=== PATIENT | male | born 1990 | race Hispanic/Latino ===

== ENCOUNTER 2020-07-03 01:16 | Inpatient (IN) | payer OTHER ==
[~2020-07-03] VITALS: Ht 180.3 cm; Wt 88.9 kg
[2020-07-03] MEDS ORDERED: AZITHROMYCIN 500MG+NS 250ML 250 ML IV ONE (01:49)
[2020-07-03] MEDS ORDERED: CEFTRIAXONE SODIUM 2 GM VIAL ONE (01:49)
[2020-07-03] MEDS ORDERED: SODIUM CHLORIDE 0.9% 50 ML IV ONE (01:51)
[2020-07-03 02:09] LABS: ABG BASE EXCESS -1.8 mmol/L (-2.0-3.0); ABG HCO3 21.7 mmol/L (21.0-28.0); ABG OXYGEN SATURATION 77.6 % (95.0-99.0); ABG PCO2 34 mmHg (35-48)
[2020-07-03 03:08] LABS: BASOPHILS % (AUTO) 0.6 % (0.0-5.0); HEMATOCRIT 43.8 % (42-54); LYMPHOCYTES % (AUTO) 14.6 % (21.0-51.0); MEAN CORPUSCULAR HEMOGLOBIN 28.2 pg (27.0-33.0); MONOCYTES % (AUTO) 4.7 % (3.0-13.0); NEUTROPHILS % (AUTO) 77.8 % (40.0-77.0); NUCLEATED RED BLOOD CELLS 0.2 % (0.0-0.19); PLATELET COUNT (AUTO) 343 K/uL (130-400); RED BLOOD CELL COUNT(AUTO) 5.28 MIL/uL (4.50-6.20); RED CELL DISTRIBUTION WIDTH 13.7 % (11.0-15.5); WHITE BLOOD COUNT (AUTO) 9.6 K/uL (4.8-10.8)
[2020-07-03 03:49] LABS: CARBON DIOXIDE 23 mmol/L (21-32); CHLORIDE 95 mmol/L (101-111); CREATININE 0.9 mg/dL (0.5-1.5); GLOMERULAR FILTR. RATE CALC 106 mL/min (>60); GLUCOSE,RANDOM 353 mg/dL (70-105); POTASSIUM 3.9 mmol/L (3.5-5.1); SODIUM SERUM 136 mmol/L (136-145); UREA NITROGEN, BLOOD 13 mg/dL (7-18)
[2020-07-03 04:05] LABS: ALANINE AMINOTRANSFERASE 132 U/L (12-78); ALBUMIN 2.9 g/dL (3.5-5.0); ASPARTATE AMINOTRANSFERASE 89 U/L (10-37); BILIRUBIN,TOTAL 0.8 mg/dL (0.2-1.0); MYOGLOBIN 205 ng/mL (10-92); TOTAL PROTEIN, SERUM 7.2 g/dL (6.0-8.3); TROPONIN I < 0.04 ng/mL (0.00-0.06)
[2020-07-03 04:10] LABS: CREATINE KINASE, TOTAL 605 U/L (21-232)
[2020-07-03 05:06] LABS: INR 1.12 (0.85-1.15); PROTHROMBIN TIME 11.9 SEC (9.6-11.6)
[2020-07-03 05:08] LABS: PARTIAL THROMBOPLASTIN TIME 23.4 SEC (26.3-35.5)
[2020-07-03 05:19] LABS: APPEARANCE,URINE Clear (CLEAR); BILIRUBIN,URINE Negative (NEGATIVE); COLOR,URINE Yellow (YELLOW); GLUCOSE, URINE (UA) >=1000 mg/dL (NEGATIVE); KETONES,URINE >=160 mg/dL (NEGATIVE); LEUKOCYTE ESTERASE ,URINE Negative (NEGATIVE); NITRATE,URINE Negative (NEGATIVE); OCCULT BLOOD,URINE Trace (NEGATIVE); PH,URINE 6.5 (5.0-8.0); PROTEIN,URINE POS 2+ mg/dL (NEGATIVE); UROBILINOGEN,URINE 0.2 mg/dL (0.2-1.0)
[2020-07-03 05:32] LABS: RBC,URINE 0-1 /HPF (0-1); WBC,URINE 0-1 /HPF (0-1)
[2020-07-03 05:33] LABS: BACTERIA,URINE Few /HPF (None Seen); SQUAMOUS EPITHELIAL CELL,UR 0-2 /HPF (0-2)
[2020-07-03] MEDS ORDERED: PHARMACY COMMUNICATION MISC SCH (06:30)
[2020-07-03] MEDS ORDERED: ACETAMINOPHEN 325 MG TAB PO PRN (06:30)
[2020-07-03] MEDS ORDERED: ONDANSETRON HCL 4 MG/2 ML VIAL IV PRN (06:30)
[2020-07-03] MEDS ORDERED: DEXAMETHASONE SOD PHOSPHATE 4 MG/ML 1ML VIAL IVP SCH (06:30)
[2020-07-03 07:15] LABS: CHOLESTEROL 167 mg/dL (<200); HDL CHOLESTEROL 29 mg/dL (29-71); LDL DIRECT 103 mg/dL (0-99); TRIGLYCERIDES 220 mg/dL (30-200)
[2020-07-03 07:21] LABS: HEMOGLOBIN A1C 9.9 % (4.0-6.0)
[2020-07-03] MEDS ORDERED: INSULIN HUMULIN R 100 UNIT/ML 3ML SQ SCH (07:30)
[2020-07-03] MEDS ORDERED: IOHEXOL-350 75 ML VIAL IV ONE (07:31)
[2020-07-03] MEDS ORDERED: ENOXAPARIN SODIUM 60 MG/0.6 ML SQ ONE (08:46)
[2020-07-03] MEDS ORDERED: DEXAMETHASONE SOD PHOSPHATE 10MG/ML 1ML VIAL ONE (08:46)
[2020-07-03] MEDS ORDERED: ASCORBIC ACID 500 MG TAB ONE (08:46)
[2020-07-03] MEDS ORDERED: DOXYCYCLINE 100MG+NS 250ML 250 ML IV ONE (08:47)
[2020-07-03] MEDS ORDERED: ZINC SULFATE 220 CAPSULE ONE (08:47)
[2020-07-03] MEDS ORDERED: FAMOTIDINE/PF 20 MG/2 ML VIAL IV ONE (08:47)
[2020-07-03] MEDS ORDERED: ERGOCALCIFEROL (VITAMIN D2) 50,000 UNIT CAPSULE ONE (08:47)
[2020-07-03] MEDS ORDERED: FUROSEMIDE 10 MG/ML 2ML VIAL ONE (08:47)
[2020-07-03] MEDS ORDERED: INSULIN HUMULIN R 100 UNIT/ML 3ML ONE (12:08)
[2020-07-03] MEDS ORDERED: ERGOCALCIFEROL (VITAMIN D2) 50,000 UNIT CAPSULE PO ONE (14:00)
[2020-07-03] MEDS ORDERED: COMPOUND IV REFRIGERATED 1 EACH IVSOLN MISC PRN (15:00)
[2020-07-03] MEDS ORDERED: REMDESIVIR (EUA) 520 200 MG in SODIUM CHLORIDE 0.9% 250 ML IV ONE (15:00)
[2020-07-03] MEDS ORDERED: INSULIN GLARGINE 100 UNITS/ML 10 ML VIAL SQ SCH (21:00)
[2020-07-04] MEDS ORDERED: PROPOFOL 1000 MG/100 ML 100 ML IV ONE ×9 (01:21→22:40)
[2020-07-04 02:20] LABS: ABG BASE EXCESS -7.2 mmol/L (-2.0-3.0); ABG HCO3 22.5 mmol/L (21.0-28.0); ABG OXYGEN SATURATION 60.2 % (95.0-99.0); ABG PCO2 64 mmHg (35-48)
[2020-07-04] MEDS ORDERED: ROCURONIUM BROMIDE 10MG/1ML 5ML VL ONE ×3 (02:23→04:06)
[2020-07-04] MEDS ORDERED: SODIUM CHLORIDE 0.9% 50 ML IV ONE ×2 (02:24→03:38)
[2020-07-04] MEDS ORDERED: FENTANYL 2500MCG+NS 250ML 250 ML IV ONE (02:35)
[2020-07-04] MEDS ORDERED: METOPROLOL TARTRATE 1 MG/ML 5ML VIAL IV ONE ×3 (03:22→13:33)
[2020-07-04] MEDS ORDERED: PROPOFOL 1000 MG/100 ML 200 ML IV ONE (03:32)
[2020-07-04 03:55] LABS: ABG BASE EXCESS -7.3 mmol/L (-2.0-3.0); ABG HCO3 22.8 mmol/L (21.0-28.0); ABG OXYGEN SATURATION 94.4 % (95.0-99.0); ABG PCO2 67 mmHg (35-48)
[2020-07-04] MEDS ORDERED: SODIUM CHLORIDE 0.9% 100 ML IV ONE ×3 (04:16→07:26)
[2020-07-04] MEDS ORDERED: ROCURONIUM 100 MG/NS 100ML (DRIP) IV SCH ×2 (05:30)
[2020-07-04] MEDS ORDERED: FENTANYL CITRATE PF 0.05 MG/ML 1,000 MCG in SODIUM CHLORIDE 0.9% 100 ML IVPB SCH (05:30)
[2020-07-04] MEDS ORDERED: PHARMACY COMMUNICATION MISC SCH (06:00)
[2020-07-04] MEDS ORDERED: PROPOFOL 10 MG/ML 20ML VIAL IV ONE ×3 (07:06→17:30)
[2020-07-04 08:00] LABS: BASOPHILS % (AUTO) 0.4 % (0.0-5.0); EOSINOPHILS % (AUTO) 0.7 % (0.0-8.0); HEMATOCRIT 44.2 % (42-54); LYMPHOCYTES % (AUTO) 7.7 % (21.0-51.0); MEAN CORPUSCULAR HEMOGLOBIN 27.9 pg (27.0-33.0); MEAN CORPUSCULAR HGB CONC 32.1 g/dL (32.0-36.0); MEAN CORPUSCULAR VOLUME 86.8 fL (79-99); MONOCYTES % (AUTO) 4.8 % (3.0-13.0); NEUTROPHILS % (AUTO) 84.3 % (40.0-77.0); NUCLEATED RED BLOOD CELLS 0.3 % (0.0-0.19); PLATELET COUNT (AUTO) 281 K/uL (130-400); RED BLOOD CELL COUNT(AUTO) 5.09 MIL/uL (4.50-6.20); RED CELL DISTRIBUTION WIDTH 14.2 % (11.0-15.5); WHITE BLOOD COUNT (AUTO) 17.7 K/uL (4.8-10.8)
[2020-07-04] MEDS ORDERED: ENOXAPARIN SODIUM 60 MG/0.6 ML SQ ONE ×2 (08:05→20:52)
[2020-07-04] MEDS ORDERED: FAMOTIDINE/PF 20 MG/2 ML VIAL IV ONE ×2 (08:06→20:52)
[2020-07-04] MEDS ORDERED: ZINC SULFATE 220 CAPSULE ONE (08:06)
[2020-07-04] MEDS ORDERED: ASCORBIC ACID 500 MG TAB ONE (08:06)
[2020-07-04] MEDS ORDERED: INSULIN HUMULIN R 100 UNIT/ML 3ML ONE ×3 (08:07→17:05)
[2020-07-04] MEDS ORDERED: DEXAMETHASONE SOD PHOSPHATE 10MG/ML 1ML VIAL ONE (08:08)
[2020-07-04 08:20] LABS: ALBUMIN 2.9 g/dL (3.5-5.0); CREATININE 1.1 mg/dL (0.5-1.5); POTASSIUM 4.8 mmol/L (3.5-5.1)
[2020-07-04 08:46] LABS: CRP QUANTITATIVE 197.8 mg/L (0.00-9.0)
[2020-07-04] MEDS ORDERED: ROCURONIUM 10MG/1ML SYR 10 MG/ML ML ONE (09:08)
[2020-07-04] MEDS ORDERED: SODIUM CHLORIDE 0.9% IV SCH ×2 (09:30→17:45)
[2020-07-04] MEDS ORDERED: ROCURONIUM BROMIDE IV SCH ×2 (09:30→17:45)
[2020-07-04 14:27] LABS: ABG BASE EXCESS -4.8 mmol/L (-2.0-3.0); ABG HCO3 24.5 mmol/L (21.0-28.0); ABG OXYGEN SATURATION 99.4 % (95.0-99.0); ABG PCO2 64 mmHg (35-48)
[2020-07-04] MEDS ORDERED: REMDESIVIR (EUA) 520 100 MG in SODIUM CHLORIDE 0.9% 250 ML IV SCH (15:00)
[2020-07-04] MEDS ORDERED: DOXYCYCLINE 100MG+NS 250ML 250 ML IV ONE (17:05)
[2020-07-04] MEDS ORDERED: FUROSEMIDE 10 MG/ML 2ML VIAL ONE (20:52)
[2020-07-04] MEDS ORDERED: METOCLOPRAMIDE 10 MG/2 ML VIAL ONE (20:53)
[2020-07-05] VITALS (29 sets, daily range): BP systolic 100–135; BP diastolic 44–76
[2020-07-05] MEDS: PROPOFOL 1000 MG/100 ML 100 ML IV SCH ×8 (01:09→23:46)
[2020-07-05] MEDS: ROCURONIUM BROMIDE IV SCH ×12 (01:11→09:48)
[2020-07-05] MEDS: METOPROLOL TARTRATE 1 MG/ML 5ML VIAL IV SCH ×2 (01:28→08:40)
[2020-07-05] MEDS: INSULIN NPH 100 UNIT/ML 3ML SQ SCH ×2 (02:10→08:41)
[2020-07-05] MEDS: INSULIN HUMULIN R 100 UNIT/ML 3ML SQ SCH ×5 (02:11→23:40)
[2020-07-05] MEDS ORDERED: FENTANYL 2500MCG+NS 250ML 250 ML IV ONE (02:46)
[2020-07-05 03:26] LABS: ABG HCO3 20.5 mmol/L (21.0-28.0); ABG PCO2 49 mmHg (35-48)
[2020-07-05 06:10] LABS: BASOPHILS % (AUTO) 0.8 % (0.0-5.0); HEMATOCRIT 41.5 % (42-54); MEAN CORPUSCULAR VOLUME 87.4 fL (79-99); MONOCYTES % (AUTO) 7.4 % (3.0-13.0); NEUTROPHILS % (AUTO) 79.7 % (40.0-77.0); NUCLEATED RED BLOOD CELLS 0.4 % (0.0-0.19); PLATELET COUNT (AUTO) 203 K/uL (130-400); RED BLOOD CELL COUNT(AUTO) 4.75 MIL/uL (4.50-6.20); RED CELL DISTRIBUTION WIDTH 13.9 % (11.0-15.5); WHITE BLOOD COUNT (AUTO) 10.3 K/uL (4.8-10.8)
[2020-07-05] MEDS: MIDAZOLAM 100MG-0.9% NS 100ML 100 ML IV SCH ×2 (06:11→17:57)
[2020-07-05 06:46] LABS: ALBUMIN 2.6 g/dL (3.5-5.0); CREATININE 1.3 mg/dL (0.5-1.5); TOTAL PROTEIN, SERUM 7.5 g/dL (6.0-8.3)
[2020-07-05 07:35] LABS: CRP QUANTITATIVE 241.4 mg/L (0.00-9.0)
[2020-07-05] MEDS ORDERED: SODIUM BICARB 50MEQ 50ML VIAL IV SCH (08:00)
[2020-07-05] MEDS: FUROSEMIDE 10 MG/ML 2ML VIAL IV SCH ×2 (08:45→23:35)
[2020-07-05] MEDS: FAMOTIDINE/PF 20 MG/2 ML VIAL IV SCH ×2 (08:46→23:34)
[2020-07-05] MEDS: ZINC SULFATE 220 CAPSULE PO SCH ×2 (08:46→09:00)
[2020-07-05] MEDS: ASCORBIC ACID 500 MG TAB PO SCH ×2 (08:46→09:00)
[2020-07-05] MEDS: ENOXAPARIN SODIUM 60 MG/0.6 ML SQ SCH ×2 (08:47→23:37)
[2020-07-05 10:20] LABS: ABG BASE EXCESS 3.1 mmol/L (-2.0-3.0); ABG HCO3 29.1 mmol/L (21.0-28.0); ABG PCO2 49 mmHg (35-48)
[2020-07-05 10:23] LABS: ALBUMIN 2.6 g/dL (3.5-5.0); BILIRUBIN,TOTAL 3.5 mg/dL (0.2-1.0); TOTAL PROTEIN, SERUM 7.2 g/dL (6.0-8.3)
[2020-07-05] MEDS: ARTIFICAL TEARS SOL 15 ML OD SCH ×2 (11:11→23:36)
[2020-07-05] MEDS: DOXYCYCLINE 100MG+NS 250ML 250 ML IV SCH (17:58)
[2020-07-05] MEDS: DEXAMETHASONE SOD PHOSPHATE 4 MG/ML 1ML VIAL IVP SCH (17:59)
[2020-07-05] MEDS: ACETAMINOPHEN 325 MG TAB PO PRN (23:35)
[2020-07-05] MEDS: FENTANYL 2500MCG+NS 250ML 250 ML IV SCH (23:52)
[2020-07-05] MEDS: INSULIN REGULAR, HUMAN 3ML 100 UNIT in SODIUM CHLORIDE 0.9% 99 ML IV PRN ×2 (23:53)
[2020-07-06] VITALS (44 sets, daily range): BP systolic 101–128; BP diastolic 51–74
[2020-07-06] MEDS: PROPOFOL 1000 MG/100 ML 100 ML IV SCH ×10 (01:17→22:47)
[2020-07-06] MEDS: ROCURONIUM BROMIDE IV SCH ×8 (01:20→23:38)
[2020-07-06] MEDS: MIDAZOLAM 100MG-0.9% NS 100ML 100 ML IV SCH ×3 (03:14→22:48)
[2020-07-06 04:14] LABS: BASOPHILS % (AUTO) 0.5 % (0.0-5.0); HEMATOCRIT 38.7 % (42-54); LYMPHOCYTES % (AUTO) 4.8 % (21.0-51.0); MEAN CORPUSCULAR HEMOGLOBIN 28.5 pg (27.0-33.0); MONOCYTES % (AUTO) 7.5 % (3.0-13.0); NEUTROPHILS % (AUTO) 81.4 % (40.0-77.0); NUCLEATED RED BLOOD CELLS 0.5 % (0.0-0.19); PLATELET COUNT (AUTO) 224 K/uL (130-400); RED BLOOD CELL COUNT(AUTO) 4.35 MIL/uL (4.50-6.20); RED CELL DISTRIBUTION WIDTH 14.4 % (11.0-15.5); WHITE BLOOD COUNT (AUTO) 12.4 K/uL (4.8-10.8)
[2020-07-06 04:30] LABS: ALBUMIN 2.4 g/dL (3.5-5.0); BILIRUBIN,TOTAL 3.3 mg/dL (0.2-1.0); CREATININE 1.5 mg/dL (0.5-1.5); POTASSIUM 4.1 mmol/L (3.5-5.1)
[2020-07-06 05:24] LABS: CRP QUANTITATIVE 193.3 mg/L (0.00-9.0)
[2020-07-06] MEDS: INSULIN REGULAR, HUMAN 3ML 100 UNIT in SODIUM CHLORIDE 0.9% 99 ML IV PRN ×4 (05:35→21:42)
[2020-07-06] MEDS: CEFTRIAXONE SODIUM 1 GM IV SCH (05:43)
[2020-07-06] MEDS: DOXYCYCLINE 100MG+NS 250ML 250 ML IV SCH ×2 (05:43→17:34)
[2020-07-06] MEDS: INSULIN HUMULIN R 100 UNIT/ML 3ML SQ SCH ×3 (05:43→17:33)
[2020-07-06] MEDS: DEXAMETHASONE SOD PHOSPHATE 4 MG/ML 1ML VIAL IVP SCH ×2 (05:43→17:34)
[2020-07-06] MEDS: ENOXAPARIN SODIUM 60 MG/0.6 ML SQ SCH ×2 (08:51→21:39)
[2020-07-06] MEDS: ASCORBIC ACID 500 MG TAB PO SCH ×2 (08:51→09:00)
[2020-07-06] MEDS: FUROSEMIDE 10 MG/ML 2ML VIAL IV SCH (08:52)
[2020-07-06] MEDS: ZINC SULFATE 220 CAPSULE PO SCH ×2 (08:52→09:00)
[2020-07-06] MEDS: FAMOTIDINE/PF 20 MG/2 ML VIAL IV SCH ×2 (08:52→21:39)
[2020-07-06] MEDS: ARTIFICAL TEARS SOL 15 ML OD SCH ×2 (08:53→21:44)
[2020-07-06] MEDS ORDERED: INSULIN GLARGINE 100 UNITS/ML 10 ML VIAL SQ ONE (11:00)
[2020-07-06] MEDS ORDERED: INSULIN GLARGINE 100 UNITS/ML 10 ML VIAL SQ SCH ×3 (12:30→21:00)
[2020-07-06] MEDS: METOPROLOL TARTRATE 25 MG TAB PO SCH ×2 (13:05→21:41)
[2020-07-06] MEDS: ACETAMINOPHEN 325 MG TAB PO PRN (13:11)
[2020-07-06] MEDS: INSULIN GLARGINE 100 UNITS/ML 10 ML VIAL SQ SCH (13:37)
[2020-07-06 13:52] LABS: ABG BASE EXCESS 3.6 mmol/L (-2.0-3.0); ABG HCO3 30.1 mmol/L (21.0-28.0); ABG OXYGEN SATURATION 97.6 % (95.0-99.0); ABG PCO2 53 mmHg (35-48)
[2020-07-06] MEDS: FENTANYL 2500MCG+NS 250ML 250 ML IV SCH (23:38)
[2020-07-07] VITALS (47 sets, daily range): BP systolic 89–124; BP diastolic 36–69
[2020-07-07] MEDS: PROPOFOL 1000 MG/100 ML 100 ML IV SCH ×11 (00:42→23:12)
[2020-07-07] MEDS: INSULIN REGULAR, HUMAN 3ML 100 UNIT in SODIUM CHLORIDE 0.9% 99 ML IV PRN ×4 (00:42→15:28)
[2020-07-07] MEDS ORDERED: NOREPINEPHRINE 4MG/NS 250ML 250 ML IV ONE (02:14)
[2020-07-07 03:39] LABS: ABG BASE EXCESS -1.3 mmol/L (-2.0-3.0); ABG HCO3 24.4 mmol/L (21.0-28.0); ABG OXYGEN SATURATION 97.6 % (95.0-99.0); ABG PCO2 44 mmHg (35-48)
[2020-07-07] MEDS: ROCURONIUM BROMIDE IV SCH ×8 (05:02→20:38)
[2020-07-07 05:24] LABS: BASOPHILS % (AUTO) 0.4 % (0.0-5.0); MEAN CORPUSCULAR HEMOGLOBIN 29.2 pg (27.0-33.0); MEAN CORPUSCULAR HGB CONC 32.1 g/dL (32.0-36.0); MEAN CORPUSCULAR VOLUME 90.9 fL (79-99); MONOCYTES % (AUTO) 9.9 % (3.0-13.0); NEUTROPHILS % (AUTO) 74.8 % (40.0-77.0); PLATELET COUNT (AUTO) 284 K/uL (130-400); RED BLOOD CELL COUNT(AUTO) 4.62 MIL/uL (4.50-6.20); RED CELL DISTRIBUTION WIDTH 14.5 % (11.0-15.5); WHITE BLOOD COUNT (AUTO) 16.3 K/uL (4.8-10.8)
[2020-07-07] MEDS: DEXAMETHASONE SOD PHOSPHATE 4 MG/ML 1ML VIAL IVP SCH ×2 (06:19→17:50)
[2020-07-07] MEDS: CEFTRIAXONE SODIUM 1 GM IV SCH (06:20)
[2020-07-07] MEDS: DOXYCYCLINE 100MG+NS 250ML 250 ML IV SCH ×2 (06:20→17:50)
[2020-07-07 07:51] LABS: POTASSIUM 3.9 mmol/L (3.5-5.1)
[2020-07-07 07:52] LABS: BILIRUBIN,TOTAL 4.6 mg/dL (0.2-1.0); CREATININE 2.4 mg/dL (0.5-1.5); TOTAL PROTEIN, SERUM 6.7 g/dL (6.0-8.3)
[2020-07-07] MEDS: METOPROLOL TARTRATE 25 MG TAB PO SCH ×2 (08:45→21:00)
[2020-07-07] MEDS: ZINC SULFATE 220 CAPSULE PO SCH (08:45)
[2020-07-07] MEDS: ASCORBIC ACID 500 MG TAB PO SCH (08:45)
[2020-07-07] MEDS: ENOXAPARIN SODIUM 60 MG/0.6 ML SQ SCH ×2 (08:45→22:06)
[2020-07-07] MEDS: FAMOTIDINE/PF 20 MG/2 ML VIAL IV SCH ×2 (08:45→22:07)
[2020-07-07] MEDS: INSULIN GLARGINE 100 UNITS/ML 10 ML VIAL SQ SCH (08:47)
[2020-07-07] MEDS: ARTIFICAL TEARS SOL 15 ML OD SCH ×2 (08:47→22:06)
[2020-07-07] MEDS: MIDAZOLAM 100MG-0.9% NS 100ML 100 ML IV SCH ×2 (09:36→20:25)
[2020-07-07] MEDS ORDERED: SODIUM CHLORIDE 0.9% 500ML 500 ML IV ONE ×2 (13:15→13:29)
[2020-07-07] MEDS: FUROSEMIDE 10 MG/ML 4ML VIAL IV SCH ×2 (15:00→22:06)
[2020-07-08] VITALS (46 sets, daily range): BP systolic 89–114; BP diastolic 42–65
[2020-07-08] MEDS: FENTANYL 2500MCG+NS 250ML 250 ML IV SCH (00:26)
[2020-07-08] MEDS: PROPOFOL 1000 MG/100 ML 100 ML IV SCH ×10 (01:42→23:59)
[2020-07-08] MEDS: INSULIN REGULAR, HUMAN 3ML 100 UNIT in SODIUM CHLORIDE 0.9% 99 ML IV PRN ×4 (01:43→09:41)
[2020-07-08] MEDS: ROCURONIUM BROMIDE IV SCH ×6 (02:31→14:08)
[2020-07-08 04:09] LABS: HEPATITIS A ANTIBODY IGM Negative (Negative); HEPATITIS B CORE IGM Negative (Negative); HEPATITIS Bs ANTIGEN SCREEN P Negative (Negative)
[2020-07-08 04:41] LABS: ABG BASE EXCESS -1.7 mmol/L (-2.0-3.0); ABG HCO3 24.8 mmol/L (21.0-28.0); ABG OXYGEN SATURATION 98.3 % (95.0-99.0); ABG PCO2 48 mmHg (35-48)
[2020-07-08 04:58] LABS: BASOPHILS % (AUTO) 0.2 % (0.0-5.0); HEMATOCRIT 32.9 % (42-54); LYMPHOCYTES % (AUTO) 5.9 % (21.0-51.0); MEAN CORPUSCULAR HEMOGLOBIN 29.3 pg (27.0-33.0); MEAN CORPUSCULAR HGB CONC 32.2 g/dL (32.0-36.0); MEAN CORPUSCULAR VOLUME 90.9 fL (79-99); MONOCYTES % (AUTO) 10.9 % (3.0-13.0); NEUTROPHILS % (AUTO) 75.6 % (40.0-77.0); NUCLEATED RED BLOOD CELLS 0.6 % (0.0-0.19); PLATELET COUNT (AUTO) 203 K/uL (130-400); RED BLOOD CELL COUNT(AUTO) 3.62 MIL/uL (4.50-6.20); RED CELL DISTRIBUTION WIDTH 14.9 % (11.0-15.5); WHITE BLOOD COUNT (AUTO) 17.1 K/uL (4.8-10.8)
[2020-07-08] MEDS: MIDAZOLAM 100MG-0.9% NS 100ML 100 ML IV SCH ×2 (04:58→13:21)
[2020-07-08] MEDS: DEXAMETHASONE SOD PHOSPHATE 4 MG/ML 1ML VIAL IVP SCH (05:15)
[2020-07-08] MEDS: CEFTRIAXONE SODIUM 1 GM IV SCH (05:15)
[2020-07-08] MEDS: DOXYCYCLINE 100MG+NS 250ML 250 ML IV SCH (05:16)
[2020-07-08 05:36] LABS: ALBUMIN 1.8 g/dL (3.5-5.0); BILIRUBIN,TOTAL 3.7 mg/dL (0.2-1.0); CREATININE 5.1 mg/dL (0.5-1.5); CRP QUANTITATIVE 149.9 mg/L (0.00-9.0); POTASSIUM 4.1 mmol/L (3.5-5.1); TOTAL PROTEIN, SERUM 6.7 g/dL (6.0-8.3)
[2020-07-08] MEDS ORDERED: POLYETHYLENE GLYCOL 3350 17 GM POWD.PACK NG SCH (08:45)
[2020-07-08] MEDS: FAMOTIDINE/PF 20 MG/2 ML VIAL IV SCH ×2 (08:59→21:04)
[2020-07-08] MEDS: ENOXAPARIN SODIUM 60 MG/0.6 ML SQ SCH ×2 (08:59→21:00)
[2020-07-08] MEDS: ASCORBIC ACID 500 MG TAB PO SCH (08:59)
[2020-07-08] MEDS: ZINC SULFATE 220 CAPSULE PO SCH (08:59)
[2020-07-08] MEDS: METOPROLOL TARTRATE 25 MG TAB PO SCH ×2 (08:59→21:00)
[2020-07-08] MEDS: ARTIFICAL TEARS SOL 15 ML OD SCH ×2 (08:59→21:05)
[2020-07-08] MEDS: DOCUSATE NA 100MG/10ML UDCUP NG SCH ×2 (09:06→16:45)
[2020-07-08] MEDS ORDERED: MIDODRINE HCL 5 MG TABLET PO SCH (09:30)
[2020-07-08] MEDS: MIDODRINE HCL 5 MG TABLET PO SCH ×2 (13:20→21:03)
[2020-07-08] MEDS ORDERED: DEXTROSE 50%-WATER 50 ML DISP.SYRIN IV ONE (14:56)
[2020-07-08] MEDS: LINEZOLID 600 MG/ISO-OSM 300 ML IV SCH ×2 (15:56→21:03)
[2020-07-08] MEDS: FLUCONAZOLE 200 MG/NS 100 ML 100 ML IV SCH (15:56)
[2020-07-08] MEDS: MEROPENEM 1 GM VIAL IVP SCH ×2 (15:57→21:04)
[2020-07-08] MEDS ORDERED: NOREPINEPHRINE 4MG/NS 250ML 250 ML IV SCH (17:15)
[2020-07-08] MEDS: HYDROCORTISONE SOD SUCCINATE 100 MG/2 ML VIAL IV SCH (21:04)
[2020-07-09] VITALS (40 sets, daily range): BP systolic 104–126; BP diastolic 54–76
[2020-07-09] MEDS: ROCURONIUM BROMIDE IV SCH ×14 (00:05→23:31)
[2020-07-09] MEDS: INSULIN REGULAR, HUMAN 3ML 100 UNIT in SODIUM CHLORIDE 0.9% 99 ML IV PRN ×10 (00:09→23:30)
[2020-07-09] MEDS: PROPOFOL 1000 MG/100 ML 100 ML IV SCH ×6 (00:12→23:11)
[2020-07-09] MEDS: DOCUSATE NA 100MG/10ML UDCUP NG SCH ×3 (00:45→16:45)
[2020-07-09] MEDS ORDERED: SODIUM CHLORIDE 0.9% 100 ML IV ONE ×2 (01:53→19:11)
[2020-07-09] MEDS: MIDAZOLAM 100MG-0.9% NS 100ML 100 ML IV SCH ×3 (03:22→23:11)
[2020-07-09 04:15] LABS: ABG HCO3 21.6 mmol/L (21.0-28.0); ABG OXYGEN SATURATION 97.6 % (95.0-99.0); ABG PCO2 62 mmHg (35-48)
[2020-07-09 06:12] LABS: BASOPHILS % (AUTO) 0.2 % (0.0-5.0); HEMATOCRIT 39.7 % (42-54); MEAN CORPUSCULAR HEMOGLOBIN 28.4 pg (27.0-33.0); MEAN CORPUSCULAR HGB CONC 31.2 g/dL (32.0-36.0); MEAN CORPUSCULAR VOLUME 91.1 fL (79-99); MONOCYTES % (AUTO) 11.8 % (3.0-13.0); NEUTROPHILS % (AUTO) 75.8 % (40.0-77.0); NUCLEATED RED BLOOD CELLS 0.4 % (0.0-0.19); PLATELET COUNT (AUTO) 268 K/uL (130-400); RED BLOOD CELL COUNT(AUTO) 4.36 MIL/uL (4.50-6.20); RED CELL DISTRIBUTION WIDTH 15.1 % (11.0-15.5); WHITE BLOOD COUNT (AUTO) 24.5 K/uL (4.8-10.8)
[2020-07-09 06:15] LABS: INR 1.07 (0.85-1.15); PROTHROMBIN TIME 11.4 SEC (9.6-11.6)
[2020-07-09 06:17] LABS: PARTIAL THROMBOPLASTIN TIME 24.8 SEC (26.3-35.5)
[2020-07-09 06:38] LABS: ALBUMIN 1.9 g/dL (3.5-5.0); BILIRUBIN,TOTAL 2.8 mg/dL (0.2-1.0); CREATININE 7.2 mg/dL (0.5-1.5); CRP QUANTITATIVE 77.8 mg/L (0.00-9.0); POTASSIUM 5.3 mmol/L (3.5-5.1); TOTAL PROTEIN, SERUM 6.9 g/dL (6.0-8.3)
[2020-07-09] MEDS: METOPROLOL TARTRATE 25 MG TAB PO SCH ×2 (07:41→20:44)
[2020-07-09] MEDS: ASCORBIC ACID 500 MG TAB PO SCH (07:41)
[2020-07-09] MEDS: FAMOTIDINE/PF 20 MG/2 ML VIAL IV SCH ×2 (07:41→20:35)
[2020-07-09] MEDS: HYDROCORTISONE SOD SUCCINATE 100 MG/2 ML VIAL IV SCH ×2 (07:42→20:36)
[2020-07-09] MEDS: ZINC SULFATE 220 CAPSULE PO SCH (07:42)
[2020-07-09] MEDS ORDERED: SODIUM POLYSTYRENE SULFONATE 15 GM/60 ML ML NG SCH (07:45)
[2020-07-09] MEDS: ARTIFICAL TEARS SOL 15 ML OD SCH ×2 (07:49→20:45)
[2020-07-09] MEDS: MIDODRINE HCL 5 MG TABLET PO SCH ×3 (07:54→20:35)
[2020-07-09] MEDS: FENTANYL 2500MCG+NS 250ML 250 ML IV SCH (08:25)
[2020-07-09] MEDS: FLUCONAZOLE 200 MG/NS 100 ML 100 ML IV SCH (10:45)
[2020-07-09] MEDS: MEROPENEM 1 GM VIAL IVP SCH ×2 (10:45→20:41)
[2020-07-09] MEDS: LINEZOLID 600 MG/ISO-OSM 300 ML IV SCH (13:15)
[2020-07-09 22:43] LABS: HEMATOCRIT 36.3 % (42-54)
[2020-07-09 22:53] LABS: HEMOGLOBIN A1C 10.5 % (4.0-6.0)
[2020-07-09 22:57] LABS: % IRON SATURATION 54.1 % (30-44)
[2020-07-09] MEDS ORDERED: HEPARIN SODIUM 5000UNIT/ML 1ML VIAL ONE (23:06)
[2020-07-09 23:07] LABS: ALBUMIN 1.8 g/dL (3.5-5.0)
[2020-07-09 23:37] LABS: CREATININE 8.6 mg/dL (0.5-1.5)
[2020-07-10] VITALS (37 sets, daily range): BP systolic 90–146; BP diastolic 40–79
[2020-07-10] MEDS: DOCUSATE NA 100MG/10ML UDCUP NG SCH ×3 (00:45→16:36)
[2020-07-10] MEDS: LINEZOLID 600 MG/ISO-OSM 300 ML IV SCH ×3 (01:25→22:19)
[2020-07-10] MEDS: PROPOFOL 1000 MG/100 ML 100 ML IV SCH ×5 (01:27→10:36)
[2020-07-10 03:51] LABS: ABG BASE EXCESS -5.3 mmol/L (-2.0-3.0); ABG HCO3 21.2 mmol/L (21.0-28.0); ABG OXYGEN SATURATION 98.2 % (95.0-99.0); ABG PCO2 45 mmHg (35-48)
[2020-07-10] MEDS: ROCURONIUM BROMIDE IV SCH ×4 (04:23→09:54)
[2020-07-10 04:55] LABS: BASOPHILS % (AUTO) 0.2 % (0.0-5.0); LYMPHOCYTES % (AUTO) 4.2 % (21.0-51.0); MEAN CORPUSCULAR HEMOGLOBIN 28.6 pg (27.0-33.0); MEAN CORPUSCULAR HGB CONC 32.6 g/dL (32.0-36.0); MEAN CORPUSCULAR VOLUME 87.9 fL (79-99); MONOCYTES % (AUTO) 11.6 % (3.0-13.0); NEUTROPHILS % (AUTO) 78.8 % (40.0-77.0); NUCLEATED RED BLOOD CELLS 0.4 % (0.0-0.19); PLATELET COUNT (AUTO) 266 K/uL (130-400); RED BLOOD CELL COUNT(AUTO) 3.98 MIL/uL (4.50-6.20); RED CELL DISTRIBUTION WIDTH 15.6 % (11.0-15.5)
[2020-07-10 05:05] LABS: ALBUMIN 1.8 g/dL (3.5-5.0); CRP QUANTITATIVE 50.4 mg/L (0.00-9.0); POTASSIUM 4.1 mmol/L (3.5-5.1); TOTAL PROTEIN, SERUM 5.9 g/dL (6.0-8.3)
[2020-07-10] MEDS: ZINC SULFATE 220 CAPSULE PO SCH (08:18)
[2020-07-10] MEDS: MIDODRINE HCL 5 MG TABLET PO SCH ×3 (08:18→22:19)
[2020-07-10] MEDS: METOPROLOL TARTRATE 25 MG TAB PO SCH ×2 (08:18→22:29)
[2020-07-10] MEDS: BALSAM PERU/CASTOR OIL 60 GM TUBE TP SCH (08:19)
[2020-07-10] MEDS: ARTIFICAL TEARS SOL 15 ML OD SCH ×2 (08:19→22:38)
[2020-07-10] MEDS: ASCORBIC ACID 500 MG TAB PO SCH (08:19)
[2020-07-10] MEDS: FAMOTIDINE/PF 20 MG/2 ML VIAL IV SCH ×2 (08:19→22:19)
[2020-07-10] MEDS: HYDROCORTISONE SOD SUCCINATE 100 MG/2 ML VIAL IV SCH (08:19)
[2020-07-10] MEDS: MIDAZOLAM 100MG-0.9% NS 100ML 100 ML IV SCH (09:53)
[2020-07-10] MEDS: INSULIN REGULAR, HUMAN 3ML 100 UNIT in SODIUM CHLORIDE 0.9% 99 ML IV PRN ×2 (09:53)
[2020-07-10] MEDS: MEROPENEM 1 GM VIAL IVP SCH ×2 (11:18→22:19)
[2020-07-10] MEDS: FLUCONAZOLE 200 MG/NS 100 ML 100 ML IV SCH (11:18)
[2020-07-10] MEDS ORDERED: DEXMEDETOMIDINE HCL 400 MCG in SODIUM CHLORIDE 0.9% 100 ML IV SCH (19:45)
[2020-07-10] MEDS: LACTULOSE 20 GM/30 ML UDCUP GT SCH (19:45)
[2020-07-10] MEDS: RIFAXIMIN 550 MG TABLET GT SCH (22:29)
[2020-07-11] VITALS (40 sets, daily range): BP systolic 104–156; BP diastolic 50–84
[2020-07-11] MEDS ORDERED: HEPARIN SODIUM 5000UNIT/ML 1ML VIAL ONE (00:35)
[2020-07-11] MEDS: LACTULOSE 20 GM/30 ML UDCUP GT SCH ×3 (03:45→19:51)
[2020-07-11 04:02] LABS: ABG HCO3 20.4 mmol/L (21.0-28.0); ABG OXYGEN SATURATION 96.5 % (95.0-99.0); ABG PCO2 43 mmHg (35-48)
[2020-07-11 07:31] LABS: BASOPHILS % (AUTO) 0.2 % (0.0-5.0); EOSINOPHILS % (AUTO) 0.1 % (0.0-8.0); HEMATOCRIT 36.1 % (42-54); MEAN CORPUSCULAR HEMOGLOBIN 27.5 pg (27.0-33.0); MEAN CORPUSCULAR HGB CONC 31.6 g/dL (32.0-36.0); MEAN CORPUSCULAR VOLUME 87.2 fL (79-99); MONOCYTES % (AUTO) 11.7 % (3.0-13.0); NUCLEATED RED BLOOD CELLS 0.7 % (0.0-0.19); PLATELET COUNT (AUTO) 280 K/uL (130-400); RED BLOOD CELL COUNT(AUTO) 4.14 MIL/uL (4.50-6.20); RED CELL DISTRIBUTION WIDTH 16.1 % (11.0-15.5)
[2020-07-11 07:38] LABS: WHITE BLOOD COUNT (AUTO) 35.3 K/uL (4.8-10.8)
[2020-07-11 07:53] LABS: ALBUMIN 1.8 g/dL (3.5-5.0); BILIRUBIN,TOTAL 3.5 mg/dL (0.2-1.0); CRP QUANTITATIVE 77.1 mg/L (0.00-9.0); TOTAL PROTEIN, SERUM 6.7 g/dL (6.0-8.3)
[2020-07-11] MEDS ORDERED: INSULIN GLARGINE 100 UNITS/ML 10 ML VIAL SQ SCH (08:00)
[2020-07-11] MEDS: DOCUSATE NA 100MG/10ML UDCUP NG SCH ×3 (08:15→16:27)
[2020-07-11] MEDS: FAMOTIDINE/PF 20 MG/2 ML VIAL IV SCH ×2 (08:16→19:50)
[2020-07-11] MEDS: ASCORBIC ACID 500 MG TAB PO SCH (08:16)
[2020-07-11] MEDS: MIDODRINE HCL 5 MG TABLET PO SCH ×3 (08:16→19:57)
[2020-07-11] MEDS: ZINC SULFATE 220 CAPSULE PO SCH (08:16)
[2020-07-11] MEDS: RIFAXIMIN 550 MG TABLET GT SCH ×2 (08:16→19:51)
[2020-07-11] MEDS: ACETAMINOPHEN 325 MG TAB PO PRN ×2 (08:18→16:28)
[2020-07-11] MEDS: ARTIFICAL TEARS SOL 15 ML OD SCH ×2 (08:19→19:52)
[2020-07-11] MEDS: METOPROLOL TARTRATE 25 MG TAB PO SCH ×2 (08:25→19:51)
[2020-07-11] MEDS: BALSAM PERU/CASTOR OIL 60 GM TUBE TP SCH (08:39)
[2020-07-11 08:40] LABS: BAND NEUTROPHILS % (MANUAL) 1 % (0-2); LYMPHOCYTES % (MANUAL) 1 % (22-44); MONOCYTES % (MANUAL) 13 % (2-9); SEGMENTED NEUTROPHILS % 85 % (40-70)
[2020-07-11 08:41] LABS: MAN.DIFF COMMENT-IMPRESSION MANUAL DIFFERENTIAL
[2020-07-11 08:42] LABS: PLATELET MORPHOLOGY COMMENT ADEQUATE
[2020-07-11] MEDS: INSULIN REGULAR, HUMAN 3ML 100 UNIT in SODIUM CHLORIDE 0.9% 99 ML IV PRN ×4 (08:46→15:19)
[2020-07-11 09:00] LABS: INR 1.07 (0.85-1.15); PROTHROMBIN TIME 11.4 SEC (9.6-11.6)
[2020-07-11] MEDS: ENOXAPARIN SODIUM 60 MG/0.6 ML SQ SCH (09:00)
[2020-07-11 09:14] LABS: HEPATITIS Bs ANTIGEN SCREEN P Negative (Negative)
[2020-07-11] MEDS: LINEZOLID 600 MG/ISO-OSM 300 ML IV SCH ×2 (11:02→19:55)
[2020-07-11] MEDS: MEROPENEM 1 GM VIAL IVP SCH ×2 (11:02→23:46)
[2020-07-11] MEDS: FLUCONAZOLE 200 MG/NS 100 ML 100 ML IV SCH (11:02)
[2020-07-11] MEDS ORDERED: HYDROCORTISONE SOD SUCCINATE 100 MG/2 ML VIAL IV SCH (12:00)
[2020-07-11] MEDS: HEPARIN SODIUM 5000UNIT/ML 1ML VIAL SQ SCH ×2 (15:10→19:56)
[2020-07-11 18:52] LABS: THYROID STIMULATING HORMONE 0.35 uIU/mL (0.36-3.74)
[2020-07-12] VITALS (33 sets, daily range): BP systolic 100–141; BP diastolic 53–96
[2020-07-12 05:52] LABS: BASOPHILS % (AUTO) 0.2 % (0.0-5.0); HEMATOCRIT 35.2 % (42-54); LYMPHOCYTES % (AUTO) 6.3 % (21.0-51.0); MEAN CORPUSCULAR HGB CONC 31.5 g/dL (32.0-36.0); MEAN CORPUSCULAR VOLUME 88.9 fL (79-99); MONOCYTES % (AUTO) 14.1 % (3.0-13.0); NEUTROPHILS % (AUTO) 75.6 % (40.0-77.0); PLATELET COUNT (AUTO) 262 K/uL (130-400); RED BLOOD CELL COUNT(AUTO) 3.96 MIL/uL (4.50-6.20); RED CELL DISTRIBUTION WIDTH 16.5 % (11.0-15.5)
[2020-07-12 05:55] LABS: WHITE BLOOD COUNT (AUTO) 33.1 K/uL (4.8-10.8)
[2020-07-12 06:08] LABS: ALBUMIN 1.8 g/dL (3.5-5.0); BILIRUBIN,TOTAL 3.6 mg/dL (0.2-1.0); CRP QUANTITATIVE 182.8 mg/L (0.00-9.0); POTASSIUM 4.9 mmol/L (3.5-5.1); TOTAL PROTEIN, SERUM 6.8 g/dL (6.0-8.3)
[2020-07-12] MEDS: LACTULOSE 20 GM/30 ML UDCUP GT SCH ×3 (07:06→19:45)
[2020-07-12] MEDS: HEPARIN SODIUM 5000UNIT/ML 1ML VIAL SQ SCH ×3 (07:07→22:03)
[2020-07-12] MEDS: MIDODRINE HCL 5 MG TABLET PO SCH ×3 (08:34→21:43)
[2020-07-12] MEDS: METOPROLOL TARTRATE 25 MG TAB PO SCH ×2 (08:34→21:42)
[2020-07-12] MEDS: RIFAXIMIN 550 MG TABLET GT SCH ×2 (08:34→21:42)
[2020-07-12] MEDS: DOCUSATE NA 100MG/10ML UDCUP NG SCH ×3 (08:34→16:16)
[2020-07-12] MEDS: ASCORBIC ACID 500 MG TAB PO SCH (08:34)
[2020-07-12] MEDS: FAMOTIDINE/PF 20 MG/2 ML VIAL IV SCH ×2 (08:34→21:42)
[2020-07-12] MEDS: ZINC SULFATE 220 CAPSULE PO SCH (08:34)
[2020-07-12] MEDS: BALSAM PERU/CASTOR OIL 60 GM TUBE TP SCH (08:35)
[2020-07-12] MEDS: ACETAMINOPHEN 325 MG TAB PO PRN (08:37)
[2020-07-12] MEDS: INSULIN REGULAR, HUMAN 3ML 100 UNIT in SODIUM CHLORIDE 0.9% 99 ML IV PRN ×2 (08:54)
[2020-07-12] MEDS: ARTIFICAL TEARS SOL 15 ML OD SCH ×2 (08:56→21:53)
[2020-07-12] MEDS ORDERED: DEXAMETHASONE SOD PHOSPHATE 4 MG/ML 1ML VIAL IVP SCH ×2 (09:00→21:00)
[2020-07-12 09:11] LABS: ABG HCO3 24.6 mmol/L (21.0-28.0); ABG OXYGEN SATURATION 97.7 % (95.0-99.0); ABG PCO2 66 mmHg (35-48)
[2020-07-12] MEDS ORDERED: LACTULOSE 20 GM/30 ML UDCUP PR SCH (10:00)
[2020-07-12] MEDS ORDERED: PHARMACY COMMUNICATION MISC SCH (10:00)
[2020-07-12] MEDS: LINEZOLID 600 MG/ISO-OSM 300 ML IV SCH ×2 (10:24→22:45)
[2020-07-12] MEDS: FLUCONAZOLE 200 MG/NS 100 ML 100 ML IV SCH (10:24)
[2020-07-12] MEDS: MEROPENEM 1 GM VIAL IVP SCH ×2 (10:24→21:51)
[2020-07-12 13:48] LABS: THYROID STIMULATING HORMONE 0.31 uIU/mL (0.36-3.74)
[2020-07-12] MEDS ORDERED: [UNRECOGNIZED DRUG - REMARK] MISC SCH (14:45)
[2020-07-12 14:54] LABS: ABG BASE EXCESS -2.2 mmol/L (-2.0-3.0); ABG HCO3 24.5 mmol/L (21.0-28.0); ABG OXYGEN SATURATION 93.4 % (95.0-99.0); ABG PCO2 49 mmHg (35-48)
[2020-07-12] MEDS ORDERED: MICAFUNGIN 100MG+NS 100ML 100 ML IV SCH (20:00)
[2020-07-13] VITALS (44 sets, daily range): BP systolic 79–128; BP diastolic 33–67
[2020-07-13] MEDS ORDERED: NOREPINEPHRINE 4MG/NS 250ML 250 ML IV ONE (02:57)
[2020-07-13] MEDS ORDERED: NOREPINEPHRINE 4MG/NS 250ML 250 ML IV SCH (03:00)
[2020-07-13 03:55] LABS: ABG BASE EXCESS -7.2 mmol/L (-2.0-3.0); ABG HCO3 18.6 mmol/L (21.0-28.0); ABG OXYGEN SATURATION 93.3 % (95.0-99.0); ABG PCO2 39 mmHg (35-48)
[2020-07-13 05:39] LABS: BASOPHILS % (AUTO) 0.2 % (0.0-5.0); HEMATOCRIT 34.2 % (42-54); LYMPHOCYTES % (AUTO) 5.8 % (21.0-51.0); MEAN CORPUSCULAR HEMOGLOBIN 27.8 pg (27.0-33.0); MEAN CORPUSCULAR HGB CONC 32.5 g/dL (32.0-36.0); MEAN CORPUSCULAR VOLUME 85.7 fL (79-99); MONOCYTES % (AUTO) 13.6 % (3.0-13.0); NEUTROPHILS % (AUTO) 72.6 % (40.0-77.0); NUCLEATED RED BLOOD CELLS 4.5 % (0.0-0.19); PLATELET COUNT (AUTO) 296 K/uL (130-400); RED BLOOD CELL COUNT(AUTO) 3.99 MIL/uL (4.50-6.20); RED CELL DISTRIBUTION WIDTH 16.3 % (11.0-15.5); WHITE BLOOD COUNT (AUTO) 17.7 K/uL (4.8-10.8)
[2020-07-13 06:16] LABS: ALBUMIN 1.7 g/dL (3.5-5.0); CRP QUANTITATIVE 153.1 mg/L (0.00-9.0); TOTAL PROTEIN, SERUM 6.6 g/dL (6.0-8.3)
[2020-07-13 06:26] LABS: CREATININE 12.5 mg/dL (0.5-1.5); POTASSIUM 6.6 mmol/L (3.5-5.1)
[2020-07-13] MEDS ORDERED: SODIUM BICARB 50MEQ 50ML VIAL 100 ML ONE (06:48)
[2020-07-13] MEDS ORDERED: VASOPRESSIN 20 UNITS in SODIUM CHLORIDE 0.9% 100 ML IV SCH (07:00)
[2020-07-13] MEDS ORDERED: SODIUM POLYSTYRENE SULFONATE 15 GM/60 ML ML NG SCH (07:15)
[2020-07-13] MEDS ORDERED: CALCIUM GLUCONATE 1 GM in SODIUM CHLORIDE 0.9% 100 ML IV SCH (07:15)
[2020-07-13] MEDS ORDERED: CALCIUM GLUCONATE 1 GM/10 ML VIAL IV SCH (07:15)
[2020-07-13] MEDS ORDERED: INSULIN HUMULIN R 100 UNIT/ML 3ML ONE (07:39)
[2020-07-13] MEDS ORDERED: DEXTROSE 50%-WATER 50 ML DISP.SYRIN IV ONE (07:41)
[2020-07-13] MEDS ORDERED: PHENYLEPHRINE HCL 100 MG in SODIUM CHLORIDE 0.9% 250 ML IV SCH (07:45)
== END 2020-07-13 07:53 | disposition expired | DRG 207 ==
LOC: EDH 01:16 → EDHIP 01:17 → 2CH 07-04 23:00
PROVIDERS: ADMIT Internal Medicine; ATTEND Internal Medicine
PROC: 5A0935A Assistance with Respiratory Ventilation, Less than 24 Consecutive Hours, High Flow/Velocity Cannula (ICD-10-PCS; 2020-07-03)
PROC: XW13325 Transfusion of Convalescent Plasma (Nonautologous) into Peripheral Vein, Percutaneous Approach, New Technology Group 5 (ICD-10-PCS; 2020-07-03)
PROC: XW033E5 Introduction of Remdesivir Anti-infective into Peripheral Vein, Percutaneous Approach, New Technology Group 5 (ICD-10-PCS; 2020-07-03)
PROC: 5A1955Z Respiratory Ventilation, Greater than 96 Consecutive Hours (ICD-10-PCS; 2020-07-04)
PROC: 0BH17EZ Insertion of Endotracheal Airway into Trachea, Via Natural or Artificial Opening (ICD-10-PCS; 2020-07-04)
PROC: 02HV33Z Insertion of Infusion Device into Superior Vena Cava, Percutaneous Approach (ICD-10-PCS; 2020-07-05)
PROC: B548ZZA Ultrasonography of Superior Vena Cava, Guidance (ICD-10-PCS; 2020-07-05)
PROC: 5A1D70Z Performance of Urinary Filtration, Intermittent, Less than 6 Hours Per Day (ICD-10-PCS; principal; 2020-07-09)
PROC: 05HN33Z Insertion of Infusion Device into Left Internal Jugular Vein, Percutaneous Approach (ICD-10-PCS; 2020-07-09)
PROC: B544ZZA Ultrasonography of Left Jugular Veins, Guidance (ICD-10-PCS; 2020-07-09)
PROC: 5A1D70Z Performance of Urinary Filtration, Intermittent, Less than 6 Hours Per Day (ICD-10-PCS; 2020-07-10)
PROC: 5A1D70Z Performance of Urinary Filtration, Intermittent, Less than 6 Hours Per Day (ICD-10-PCS; 2020-07-11)
DX: U07.1 COVID-19 (principal); J12.82 Pneumonia due to coronavirus disease 2019; J96.01 Acute respiratory failure with hypoxia; A41.89 Other specified sepsis; R65.21 Severe sepsis with septic shock; N17.0 Acute kidney failure with tubular necrosis; G92 Toxic encephalopathy; K72.00 Acute and subacute hepatic failure without coma; Z68.44 Body mass index [BMI] 60.0-69.9, adult; E87.2 Acidosis; M62.82 Rhabdomyolysis; E88.09 Other disorders of plasma-protein metabolism, not elsewhere classified; E66.01 Morbid (severe) obesity due to excess calories; E11.65 Type 2 diabetes mellitus with hyperglycemia; E87.70 Fluid overload, unspecified; D64.9 Anemia, unspecified; E03.9 Hypothyroidism, unspecified; E07.81 Sick-euthyroid syndrome; E87.5 Hyperkalemia; E88.81 Metabolic syndrome and other insulin resistance; I10 Essential (primary) hypertension; K76.0 Fatty (change of) liver, not elsewhere classified; S90.821A Blister (nonthermal), right foot, initial encounter; S90.822A Blister (nonthermal), left foot, initial encounter; T38.0X5A Adverse effect of glucocorticoids and synthetic analogues, initial encounter; Z79.4 Long term (current) use of insulin; Z99.2 Dependence on renal dialysis; Z86.718 Personal history of other venous thrombosis and embolism; Z83.3 Family history of diabetes mellitus
CPT/HCPCS: 31500; 36415; 36600; 70450; 71045; 71275; 74018; 76700; 76705; 76770; 80053; 80061; 80074; 80076; 81001; 82010; 82040; 82140; 82435; 82550; 82565; 82728; 82803; 82947; 82948; 83036; 83540; 83550; 83605; 83615; 83874; 84132; 84145; 84295; 84439; 84443; 84479; 84481; 84482; 84484; 84520; 85014; 85018; 85025; 85378; 85610; 85730; 86140; 86606; 86612; 86635; 86698; 86701; 86704; 86706; 86850; 86900; 86901; 86927; 87040; 87088; 87340; 87390; 87426; 87493; 87520; 87804; 90935; 92950; 93005; 93970; 94002; 94003; 94660; G0378; J0456; J0610; J0696; J1100; J1450; J1644; J1650; J1720; J1815; J1940; J2020; J2185; J2248; J2370; J2704; J2765; J3010; J3490; J7040; J7050; J7070; Q9967; U0003